=== PATIENT | male | born 1990 | race American Indian/Alaskan Native ===

== ENCOUNTER 2016-11-14 20:43 | Emergency (ER) | payer SELFPAY ==
--- NOTE | 2016-11-14 21:20 | Emergency Department Report ---
ED Male HPI - General Chief complaint: Urogenital-Male Stated complaint: TESTICLE PAIN Time Seen by Provider: 11/14/16 21:18 Source: patient Mode of arrival: Ambulatory Limitations: No Limitations - History of Present Illness Initial comments: Patient complains of testicular pain that started 2 days ago . taking otc pain meds without relieve. Pain 5/10 and sharp. Denies injury. He reports no discharge in triage but reported to me that he has yellow penile discharge that started 2 days ago after having unsafe sex. Denies urinary burning, frequency or urgency. denies abdominal or back pain. Denies fever or chills. Denies nausea or vomiting. Unsure if partner with symptoms of std. Patient also reports that his testicles has been hurting for years on/off. MD Complaint: testicle pain, testicle swelling, penile discharge Onset/Timin -: days(s) Location: left testicle Radiation: none Severity: moderate Severity scale (0 -10): 5 Quality: sharp Consistency: intermittent Worsens with: none new sexual partner discharge, swelling. denies: mass, rash, urinary retention, blood in urine, dysuria, fever, nausea/vomiting, incontinence - Related Data Sexually active: Yes Previous Rx's Medication Instructions Recorded Last Taken Type Acetaminophen/Codeine [Tylenol #3] 1 tab PO Q6H PRN #10 tab 12/15/14 Unknown Rx Azithromycin [Zithromax TAB] 2 gm PO ONCE #8 tablet 12/15/14 Unknown Rx Ibuprofen [Motrin 800 MG tab] 800 mg PO Q8HR PRN #30 tablet 12/15/14 Unknown Rx Mupirocin [Bactroban 2% OINT] 1 applic TP TID #1 tube 12/15/14 Unknown Rx Ciprofloxacin HCl [Ciprofloxacin 500 mg PO Q12HR #20 tab 11/14/16 Unknown Rx TAB] Allergies Allergy/AdvReac Type Severity Reaction Status Date / Time shellfish derived Allergy Anaphylaxis Verified 06/12/13 17:39 ED Review of Systems ROS: Stated complaint: TESTICLE PAIN Other details as noted in HPI Comment: All other systems reviewed and negative Constitutional: denies: chills, fever ENT: denies: throat pain Respiratory: no symptoms reported Cardiovascular: denies: chest pain, palpitations, edema, syncope Gastrointestinal: denies: abdominal pain, nausea, vomiting Genitourinary: discharge, testicular pain. denies: urgency, dysuria, frequency , hematuria, testicular mass Musculoskeletal: denies: back pain, arthralgia Skin: denies: rash Neurological: denies: headache, weakness, numbness, paresthesias, confusion, abnormal gait, vertigo ED Past Medical Hx - Past Medical History Previous Medical History?: Yes Additional medical history: hx of repeated treatment for gonorrhea - Surgical History Past Surgical History?: Yes Additional Surgical History: Bilateral orchiopexy. (1993 date) - Family History Family history: hypertension - Social History Smoking Status: Current Every Day Smoker Substance Use Type: Alcohol, Marijuana - Medications Home Medications: Home Medications Medication Instructions Recorded Confirmed Last Taken Type Acetaminophen/Codeine [Tylenol #3] 1 tab PO Q6H PRN #10 tab 12/15/14 Unknown Rx Azithromycin [Zithromax TAB] 2 gm PO ONCE #8 tablet 12/15/14 Unknown Rx Ibuprofen [Motrin 800 MG tab] 800 mg PO Q8HR PRN #30 tablet 12/15/14 Unknown Rx Mupirocin [Bactroban 2% OINT] 1 applic TP TID #1 tube 12/15/14 Unknown Rx Ciprofloxacin HCl [Ciprofloxacin 500 mg PO Q12HR #20 tab 11/14/16 Unknown Rx TAB] ED Physical Exam - General Limitations: No Limitations General appearance: alert, in no apparent distress - Head Head exam: Present: atraumatic, normocephalic, normal inspection - Eye Eye exam: Present: normal appearance, PERRL, EOMI. Absent: periorbital swelling Pupils: Present: normal accommodation - ENT ENT exam: Present: normal exam, normal orophraynx, mucous membranes moist, TM's normal bilaterally, normal external ear exam - Neck Neck exam: Present: normal inspection, full ROM. Absent: tenderness, meningismus, lymphadenopathy - Respiratory Respiratory exam: Present: normal lung sounds bilaterally. Absent: respiratory distress, chest wall tenderness - Cardiovascular Cardiovascular Exam: Present: regular rate, normal rhythm, normal heart sounds - GI/Abdominal GI/Abdominal exam: Present: soft, normal bowel sounds. Absent: distended, tenderness, guarding, rebound, rigid - exam: Present: normal inspection, testicular tenderness, urethral discharge. Absent: scrotal swelling External exam: Present: normal external exam. Absent: erythema, swelling, lesions, lacerations, ecchymosis, bleeding - Expanded Exam Expanded Male exam: Absent: phimosis, paraphimosis, penile swelling, lesions, induration, erythema, perineal induration, balanitis, priapism exam: Testicular Tenderness: Left - Extremities Exam Extremities exam: Present: normal inspection, full ROM, normal capillary refill. Absent: tenderness, pedal edema, joint swelling, calf tenderness - Back Exam Back exam: Present: normal inspection, full ROM. Absent: tenderness - Neurological Exam Neurological exam: Present: alert, oriented X3, normal gait, reflexes normal. Absent: motor sensory deficit - Psychiatric Psychiatric exam: Present: normal affect, normal mood - Skin Skin exam: Present: warm, dry, intact, normal color. Absent: rash ED Course Vital Signs 11/14/16 20:46 Temperature 98.1 F Pulse Rate 95 H Respiratory 18 Rate Blood Pressure 127/69 [Right] O2 Sat by Pulse 98 Oximetry - Reevaluation(s) Reevaluation #1: 11/14/16 22:01 Patient requesting testing for STD. Reevaluation #2: 11/14/16 22:39 Patient with Rocephin 1 g IM in the emergency room to cover urinary tract infection and gonorrhea. Azithromycin 1 g by mouth and Flagyl 2 g by mouth to cover chlamydia and Trichomonas. Patient had ultrasound of the testicles. ED Medical Decision Making - Lab Data Lab Results 11/14/16 Range/Units 21:12 Urine Color Yellow (Yellow) Urine Turbidity Cloudy (Clear) Urine pH 5.0 (5.0-7.0) Ur Specific [place] 1.026 (1.003-1.030) Urine Protein 30 mg/dl (Negative) mg/dL Urine Glucose (UA) Neg (Negative) mg/dL Urine Ketones Neg (Negative) mg/dL Urine Blood Sm (Negative) Urine Nitrite Neg (Negative) Urine Bilirubin Neg (Negative) Urine Urobilinogen < 2.0 (<2.0) mg/dL Ur Leukocyte Esterase Lg (Negative) Urine WBC (Auto) > 182.0 H (0.0-6.0) /HPF Urine RBC (Auto) 54.0 (0.0-6.0) /HPF Urine Mucus 2+ /HPF Urine culture pending GC/CLamydia pending - Radiology Data Radiology results: report reviewed Left testicular Microlithiasis. Testicles normal Arterial and venous blood flow.no epididymysis. - Medical Decision Making ED course: Significant complaint in left testicular pain going on for years but pain worsens 2 days ago. reports yellow penile discharge after sexual activity. Pain is 5/10 and burning.Patient with Rocephin 1 g IM in the emergency room to cover urinary tract infection and gonorrhea. Azithromycin 1 g by mouth and Flagyl 2 g by mouth to cover chlamydia and Trichomonas. Patient with microlithasis to left testicles other [place] normal testicles. Diagnosis and treatment plan explained to patient. I discussed with him that he will need to f/u with urologist in 3 days and [facility] STD and UTI. He voiced understanding of discharge diagnosis and treatment plans. No adverse reaction from medication given. Discharge home in stable condition with prescription for ciprofloxacin. Critical care attestation.: If time is entered above; I have spent that time in minutes in the direct care of this critically ill patient, excluding procedure time. ED Disposition Clinical Impression: Abnormal penile discharge, Concern about STD in male without diagnosis, Acute cystitis with hematuria, Testicular microlithiasis, Testicular pain, left Disposition: DC-01 TO HOME OR SELFCARE Is pt being admited?: No Does the pt Need Aspirin: No Condition: Stable Instructions: Urinary Tract Infection in Men (ED), Sexually Transmitted Diseases (ED), Safe Sex (ED), Testicle Pain (ED) Additional Instructions: Follow up at [facility] and urologist in 3 days Take Antibiotic as instructed See Discharge information on testicular microlithiasis Increase fluid intake Prescriptions: Ciprofloxacin HCl [Ciprofloxacin TAB] 500 mg PO Q12HR #20 tab Referrals: [facility] [Outside] - 11/17/16 SVETA BUSTOS MD [Staff Physician] - 11/17/16 Forms: Work/School Release Form(ED)
[2016-11-14 21:35] LABS: Bilirubin,Urine NEG (Negative); Blood,Urine SM (Negative); Ketones,Urine NEG (Negative); Leukocyte Esterase,Urine LG (Negative); Mucus,Urine 2+ /HPF; Nitrite,Urine NEG (Negative); Urobilinogen,Urine < 2.0 mg/dL (<2.0)
[2016-11-14 21:36] LABS: WBC,Urine > 182.0 /HPF (0.0-6.0)
[2016-11-14] MEDS ORDERED: ROCEPHIN IM STA (22:03)
[2016-11-14] MEDS ORDERED: XYLOCAINE 1% MPF 5 mL INFILTRATI ONE (22:03)
[2016-11-14] MEDS ORDERED: FLAGYL PO ONE (22:03)
[2016-11-14] MEDS ORDERED: ZITHROMAX PO ONE (22:03)
--- NOTE | 2016-11-14 22:25 | Ultrasound Report ---
FINAL REPORT PROCEDURE: US TESTICULAR DOPPLER COMP TECHNIQUE: Real-time willis-scale and color flow Doppler sonography in multiple planes of the scrotum, testicles, and epididymes was performed. Velocity spectral waveform analysis Doppler imaging of the arterial inflow and venous outflow of the testicles was performed with image documentation. CPT 20066 and 21794 HISTORY: testicular pain COMPARISON: No prior studies are available for comparison. FINDINGS: RIGHT TESTICLE: Size: 4.6 x 2.3 x 2.7 cm . Appearance: Multiple punctate echogenic foci are identified throughout the testis. Arterial blood flow: Normal spectral waveforms, flow velocities and color flow images.. Venous blood flow: Normal spectral waveforms and color flow images. Right epididymis: Normal size and echotexture . Hydrocele: None . LEFT TESTICLE Size: 4.2 x 2.2 x 2.6 cm . Appearance: Multiple punctate echogenic foci are identified throughout the testis. Arterial blood flow: Normal spectral waveforms, flow velocities and color flow images.. Venous blood flow: Normal spectral waveforms and color flow images. Leftepididymis: Normal size and echotexture . Hydrocele: None . IMPRESSION: Findings are consistent with testicular microlithiasis. No acute abnormality
[2016-11-14 23:07] VITALS: BP 126/82
== END 2016-11-14 23:09 | disposition home or self-care (01) ==
LOC: ED 20:43
DX: N30.00 Acute cystitis without hematuria (principal); F17.210 Nicotine dependence, cigarettes, uncomplicated; F12.10 Cannabis abuse, uncomplicated; Z91.013 Allergy to seafood
CPT/HCPCS: 81001; 87086; 87591; 93975; 96372; 99284; J0696

== ENCOUNTER 2017-03-26 10:06 | Emergency (ER) | payer SELFPAY ==
[2017-03-26 10:14] VITALS: BP 119/65
[2017-03-26] MEDS ORDERED: TORADOL IM ONE (10:32)
--- NOTE | 2017-03-26 10:39 | Emergency Department Report ---
ED Neck Pain/Injury HPI - General Chief Complaint: Neck Pain/Injury Stated Complaint: NECK AND SHOULDER PAIN, X5 DAYS AGO Time Seen by Provider: 03/26/17 10:31 Mode of arrival: Ambulatory Limitations: No Limitations - History of Present Illness Initial Comments: pt is a 26 y/o aam with nmh who presents for left sided neck muscle pain x 5 days as "some boxed fell on me at work and my neck is sore now" pain is described as 4/10 soreness that is exacerbated by movement pain is relieved by rest , there is no weakness no numbness no tingling pain radiates to left posterior lateral shoulder and scapula region described as spasm and tightness , theres no loc no other trauma head trauma or laceration or wound, there is no headache no dizziness no sob no cp no n/v. MD Complaint: neck pain Onset/Timin -: days(s) Place: work Radiation: left lateral, left upper extremity Severity: moderate Severity scale (0 -10): 4 Quality: aching, other ("soreness") Consistency: intermittent Improves With: other (rest , stretching ) Worsens With: movement of extremity, movement of neck Context: direct blow Associated Symptoms: denies: headache, fever, numbness, tingling, weakness, vertigo, difficulty walking, swollen glands, difficulty swallowing, nausea, vomiting Treatments Prior to Arrival: none - Related Data Previous Rx's Medication Instructions Recorded Last Taken Type Acetaminophen/Codeine [Tylenol #3] 1 tab PO Q6H PRN #10 tab 12/15/14 Unknown Rx Azithromycin [Zithromax TAB] 2 gm PO ONCE #8 tablet 12/15/14 Unknown Rx Ibuprofen [Motrin 800 MG tab] 800 mg PO Q8HR PRN #30 tablet 12/15/14 Unknown Rx Mupirocin [Bactroban 2% OINT] 1 applic TP TID #1 tube 12/15/14 Unknown Rx Ciprofloxacin HCl [Ciprofloxacin 500 mg PO Q12HR #20 tab 11/14/16 Unknown Rx TAB] Cyclobenzaprine [Flexeril] 10 mg PO TID PRN #30 tablet 03/26/17 Unknown Rx Naproxen 500 mg PO BID PRN #60 tablet 03/26/17 Unknown Rx Allergies Allergy/AdvReac Type Severity Reaction Status Date / Time shellfish derived Allergy Anaphylaxis Verified 06/12/13 17:39 ED Review of Systems ROS: Stated complaint: NECK AND SHOULDER PAIN, X5 DAYS AGO Other details as noted in HPI Constitutional: denies: chills, fever Eyes: denies: eye pain, eye discharge, vision change ENT: denies: ear pain, throat pain Respiratory: no symptoms reported Cardiovascular: denies: chest pain, palpitations Endocrine: no symptoms reported Gastrointestinal: denies: abdominal pain, nausea, diarrhea Genitourinary: denies: urgency, dysuria Musculoskeletal: other (neck and shoulder pain ) Skin: denies: rash, lesions Neurological: as per HPI Psychiatric: denies: anxiety, depression Hematological/Lymphatic: denies: easy bleeding, easy bruising ED Past Medical Hx - Past Medical History Previous Medical History?: Yes Additional medical history: hx of repeated treatment for gonorrhea - Surgical History Past Surgical History?: Yes Additional Surgical History: Bilateral orchiopexy. (1993 Approx. date) - Social History Smoking Status: Current Every Day Smoker Substance Use Type: Alcohol - Medications Home Medications: Home Medications Medication Instructions Recorded Confirmed Last Taken Type Acetaminophen/Codeine [Tylenol #3] 1 tab PO Q6H PRN #10 tab 12/15/14 Unknown Rx Azithromycin [Zithromax TAB] 2 gm PO ONCE #8 tablet 12/15/14 Unknown Rx Ibuprofen [Motrin 800 MG tab] 800 mg PO Q8HR PRN #30 tablet 12/15/14 Unknown Rx Mupirocin [Bactroban 2% OINT] 1 applic TP TID #1 tube 12/15/14 Unknown Rx Ciprofloxacin HCl [Ciprofloxacin 500 mg PO Q12HR #20 tab 11/14/16 Unknown Rx TAB] Cyclobenzaprine [Flexeril] 10 mg PO TID PRN #30 tablet 03/26/17 Unknown Rx Naproxen 500 mg PO BID PRN #60 tablet 03/26/17 Unknown Rx ED Physical Exam - General Limitations: No Limitations General appearance: alert, in no apparent distress - Head Head exam: Present: atraumatic, normocephalic, normal inspection - Eye Eye exam: Present: normal appearance, PERRL, EOMI Pupils: Present: normal accommodation - ENT ENT exam: Present: mucous membranes moist - Neck Neck exam: Present: normal inspection, tenderness (left lateal neck muscle pain ), full ROM, lymphadenopathy. Absent: thyromegaly - Expanded Neck Exam Expanded Neck exam: Present: tenderness (left lateral neck muscle pain there is no posterior vertebaral point tenderness no swelling no deformity noted spams ). Absent: midline deformity, anterior neck swelling, thyroid mass, carotid bruit, tracheal deviation - Respiratory Respiratory exam: Present: normal lung sounds bilaterally. Absent: respiratory distress, wheezes, stridor, chest wall tenderness - Cardiovascular Cardiovascular Exam: Present: regular rate, normal rhythm, normal heart sounds. Absent: systolic murmur, diastolic murmur, rubs, gallop - GI/Abdominal GI/Abdominal exam: Present: soft, normal bowel sounds. Absent: distended, tenderness, guarding, rebound, rigid, organomegaly, mass, bruit, pulsatile mass , hernia - Rectal Rectal exam: Present: deferred - Extremities Exam Extremities exam: Present: normal inspection, tenderness (left posterior lateral shoulder muscle pain ), normal capillary refill. Absent: full ROM, pedal edema, joint swelling, calf tenderness - Expanded Upper Extremity Exam Left Shoulder Exam: Present: full ROM, tenderness (left posterior lateral shoulder muscle pain and spasm ). Absent: swelling, abrasion, laceration, ecchymosis, deformity, crepidus, dislocation, erythema, tenderness over AC joint Upper Arm exam: Present: normal inspection, full ROM Elbow exam: Present: normal inspection, full ROM Forearm Wrist exam: Present: normal inspection, full ROM Hand Wrist exam: Present: normal inspection, full ROM Neuro motor exam: Present: wrist extension intact, thumb opposition intact, thumb IP flexion intact, thumb adduction intact, fingers 2-5 abduction intact Neurosensory exam: Present: 2-point discrimination, radial nerve intact, ulnar nerve intact, median nerve intact Vascular: Present: normal capillary refill, radial pulse, brachial pulse, ulnar pulse. Absent: vascular compromise, Pallo, pulse deficit radial art, pulse deficit ulnar art, pulse deficit brachial art - Back Exam Back exam: Present: normal inspection, full ROM. Absent: tenderness, CVA tenderness (R), CVA tenderness (L), muscle spasm, paraspinal tenderness, vertebral tenderness, rash noted - Neurological Exam Neurological exam: Present: alert, oriented X3, CN II-XII intact, normal gait, reflexes normal. Absent: motor sensory deficit - Psychiatric Psychiatric exam: Present: normal affect, normal mood - Skin Skin exam: Present: warm, dry, intact, normal color. Absent: rash ED Course Vital Signs 03/26/17 10:12 Temperature 97.8 F Pulse Rate 75 Respiratory 16 Rate Blood Pressure 119/65 O2 Sat by Pulse 97 Oximetry ED Medical Decision Making - Medical Decision Making pt is a 26 y/o aam with nmh who presents for left sided neck muscle pain x 5 days as "some boxed fell on me at work and my neck is sore now" pain is described as 4/10 soreness that is exacerbated by movement pain is relieved by rest , there is no weakness no numbness no tingling pain radiates to left posterior lateral shoulder and scapula region described as spasm and tightness , theres no loc no other trauma head trauma or laceration or wound, there is no headache no dizziness no sob no cp no n/v. , pt appears well nontoxic there is no posterior vertebral point tenderness no swelling no ecchymois no crepitus rom intact with reproducible spams to left lateral neck muscle pain, shoulder rom intact no ac joint tenderess mild reproducible pain to left suprascapula region, this musculoskeletal pain will treat with nsaids, muscle relaxant moist heat and neck exercises pt will follow up with primary care doctor in 2-3 days. pt verbalized agreement and understanding with discharge plan. Critical care attestation.: If time is entered above; I have spent that time in minutes in the direct care of this critically ill patient, excluding procedure time. ED Disposition Clinical Impression: Neck muscle strain Qualifiers: Encounter type: initial encounter Qualified Code(s): S16.1XXA - Strain of muscle, fascia and tendon at neck level, initial encounter Disposition: TO HOME OR SELFCARE Is pt being admited?: No Does the pt Need Aspirin: No Condition: Good Instructions: Cervical Spine Strain (ED), Neck Exercises (GEN) Prescriptions: Cyclobenzaprine [Flexeril] 10 mg PO TID PRN #30 tablet PRN Reason: Muscle Spasm Naproxen 500 mg PO BID PRN #60 tablet PRN Reason: Pain Referrals: PRIMARY CARE, [Primary Care Provider] - 3-5 Days Forms: Work/School Release Form(ED) Time of Disposition: 10:51
[2017-03-26] MEDS ORDERED: TORADOL ONE (10:48)
== END 2017-03-26 11:02 | disposition home or self-care (01) ==
LOC: ED 10:06
DX: S16.1XXA Strain of muscle, fascia and tendon at neck level, initial encounter (principal); F17.210 Nicotine dependence, cigarettes, uncomplicated; Z91.013 Allergy to seafood; W22.8XXA Striking against or struck by other objects, initial encounter; Y93.89 Activity, other specified; Y92.89 Other specified places as the place of occurrence of the external cause; Y99.8 Other external cause status
CPT/HCPCS: 96372; 99282; J1885

== ENCOUNTER 2017-04-03 18:32 | Emergency (ER) | payer SELFPAY ==
[2017-04-03] MEDS ORDERED: MOTRIN PO ONE (22:16)
--- NOTE | 2017-04-03 22:34 | Emergency Department Report ---
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 MD Complaint: neck pain Onset/Timin -: week(s) Place: work Radiation: left lateral Severity: mild Severity scale (0 -10): 4 Quality: aching Consistency: intermittent Improves With: other (rest) Worsens With: movement of neck Context: lifting Associated Symptoms: none Treatments Prior to Arrival: none - Related Data Previous Rx's Medication Instructions Recorded Last Taken Type Acetaminophen/Codeine [Tylenol #3] 1 tab PO Q6H PRN #10 tab 12/15/14 Unknown Rx Azithromycin [Zithromax TAB] 2 gm PO ONCE #8 tablet 12/15/14 Unknown Rx Ibuprofen [Motrin 800 MG tab] 800 mg PO Q8HR PRN #30 tablet 12/15/14 Unknown Rx Mupirocin [Bactroban 2% OINT] 1 applic TP TID #1 tube 12/15/14 Unknown Rx Ciprofloxacin HCl [Ciprofloxacin 500 mg PO Q12HR #20 tab 11/14/16 Unknown Rx TAB] Cyclobenzaprine [Flexeril] 10 mg PO TID PRN #30 tablet 03/26/17 Unknown Rx Naproxen 500 mg PO BID PRN #60 tablet 03/26/17 Unknown Rx Allergies Allergy/AdvReac Type Severity Reaction Status Date / Time shellfish derived Allergy Anaphylaxis Verified 06/12/13 17:39 ED Review of Systems ROS: Stated complaint: NECK PAIN Other details as noted in HPI Constitutional: denies: chills, fever Eyes: denies: eye pain, eye discharge, vision change ENT: denies: ear pain, throat pain Respiratory: denies: cough, shortness of breath, wheezing Cardiovascular: denies: chest pain, palpitations Endocrine: no symptoms reported Gastrointestinal: denies: abdominal pain, nausea, diarrhea Genitourinary: denies: urgency, dysuria Musculoskeletal: other (neck pain). denies: back pain, joint swelling, arthralgia Skin: denies: rash, lesions Neurological: denies: headache, weakness, paresthesias Psychiatric: denies: anxiety, depression Hematological/Lymphatic: denies: easy bleeding, easy bruising ED Past Medical Hx - Past Medical History Previous Medical History?: Yes Additional medical history: hx of repeated treatment for gonorrhea - Surgical History Additional Surgical History: Bilateral orchiopexy. (1993 Approx. date)-hernia - Social History Smoking Status: Current Every Day Smoker Substance Use Type: Alcohol - Medications Home Medications: Home Medications Medication Instructions Recorded Confirmed Last Taken Type Acetaminophen/Codeine [Tylenol #3] 1 tab PO Q6H PRN #10 tab 12/15/14 Unknown Rx Azithromycin [Zithromax TAB] 2 gm PO ONCE #8 tablet 12/15/14 Unknown Rx Ibuprofen [Motrin 800 MG tab] 800 mg PO Q8HR PRN #30 tablet 12/15/14 Unknown Rx Mupirocin [Bactroban 2% OINT] 1 applic TP TID #1 tube 12/15/14 Unknown Rx Ciprofloxacin HCl [Ciprofloxacin 500 mg PO Q12HR #20 tab 11/14/16 Unknown Rx TAB] Cyclobenzaprine [Flexeril] 10 mg PO TID PRN #30 tablet 03/26/17 Unknown Rx Naproxen 500 mg PO BID PRN #60 tablet 03/26/17 Unknown Rx ED Physical Exam - General Limitations: No Limitations General appearance: alert, in no apparent distress - Head Head exam: Present: atraumatic, normocephalic - Eye Eye exam: Present: normal appearance, PERRL, EOMI Pupils: Present: normal accommodation - ENT ENT exam: Present: mucous membranes moist - Neck Neck exam: Present: normal inspection, tenderness (left lateral neck muscle tenderness no vertebral point tenderness rom intact including chin to chest bilat shoulders and full extension ), full ROM. Absent: lymphadenopathy, thyromegaly - Expanded Neck Exam Expanded Neck exam: Absent: midline deformity, anterior neck swelling, thyroid mass, carotid bruit, tracheal deviation - Respiratory Respiratory exam: Present: normal lung sounds bilaterally. Absent: respiratory distress, wheezes, stridor, chest wall tenderness - Cardiovascular Cardiovascular Exam: Present: regular rate, normal rhythm. Absent: systolic murmur, diastolic murmur, rubs, gallop - GI/Abdominal GI/Abdominal exam: Present: soft, normal bowel sounds - Rectal Rectal exam: Present: deferred - Extremities Exam Extremities exam: Present: normal inspection, full ROM, normal capillary refill. Absent: tenderness, pedal edema, joint swelling - Back Exam Back exam: Present: normal inspection - Neurological Exam Neurological exam: Present: alert, oriented X3 - Psychiatric Psychiatric exam: Present: normal affect, normal mood - Skin Skin exam: Present: warm, dry, intact, normal color. 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 normal neck exam rom intact no posterior vertebral point tenderness no paresthesia no numbness no tingling no weakness no dizziness no headache no n/v no visual changes, pain improved with ibuprofen po , pt has rx in his possession for naproxen and flexeril pt states he has resources to secure medications, pt advised to pickers material handlers medications and take as prescribed, pt will follow up with primary care Dr. Vallejo [phone]. pt verbalized agreement and understanding of discharge plan. Critical care attestation.: If time is entered above; I have spent that time in minutes in the direct care of this critically ill patient, excluding procedure time. ED Disposition Clinical Impression: Neck muscle strain Qualifiers: Encounter type: subsequent encounter Qualified Code(s): S16.1XXD - Strain of muscle, fascia and tendon at neck level, subsequent encounter Disposition: TO HOME OR SELFCARE Is pt being admited?: No Does the pt Need Aspirin: No Condition: Good Instructions: Cervical Spine Strain (ED), Neck Exercises (GEN) Referrals: PRIMARY CARE, [Primary Care Provider] - 3-5 Days MARIO ROMO MD [Staff Physician] - 3-5 Days Forms: Work/School Release Form(ED) Time of Disposition: 22:43
[2017-04-04 03:49] VITALS: BP 125/79
== END 2017-04-03 22:49 | disposition home or self-care (01) ==
LOC: ED 18:32
DX: S16.1XXD Strain of muscle, fascia and tendon at neck level, subsequent encounter (principal); X50.0XXA Overexertion from strenuous movement or load, initial encounter; Y93.89 Activity, other specified; Y92.89 Other specified places as the place of occurrence of the external cause; Y99.8 Other external cause status
CPT/HCPCS: 99282

== ENCOUNTER 2017-12-30 22:34 | Emergency (ER) | payer SELFPAY ==
[2017-12-31] MEDS ORDERED: BENADRYL IM ONE (01:25)
[2017-12-31] MEDS ORDERED: DECADRON IM ONE (01:25)
--- NOTE | 2017-12-31 02:47 | Emergency Department Report ---
HPI - General Chief Complaint: Allergic Reaction Time Seen by Provider: 12/31/17 02:32 - HPI HPI: 27-year-old -[place] male reports to the emergency room for 2 days of allergic reaction that started with his skin burning and then started to develop whelps all over the body. Patient doesn't know what he got exposed to what could have caused it. Patient does report he has recently moved in with his sister. He denies any difficulty breathing and denies any difficulty swallowing no chest pain no shortness of breathing. Patient reports that he tried the Benadryl but did not help. Patient reports an allergic reaction only cheese shellfish. Patient currently takes no medication at this time ED Past Medical Hx - Past Medical History Previous Medical History?: Yes Additional medical history: hx of repeated treatment for gonorrhea - Surgical History Past Surgical History?: Yes Additional Surgical History: Bilateral orchiopexy. (1993 Approx. date)-hernia - Social History Smoking Status: Never Smoker - Medications Home Medications: Home Medications Medication Instructions Recorded Confirmed Last Taken Type Acetaminophen/Codeine [Tylenol #3] 1 tab PO Q6H PRN #10 tab 12/15/14 Unknown Rx Azithromycin [Zithromax TAB] 2 gm PO ONCE #8 tablet 12/15/14 Unknown Rx Ibuprofen [Motrin 800 MG tab] 800 mg PO Q8HR PRN #30 tablet 12/15/14 Unknown Rx Mupirocin [Bactroban 2% OINT] 1 applic TP TID #1 tube 12/15/14 Unknown Rx Ciprofloxacin HCl [Ciprofloxacin 500 mg PO Q12HR #20 tab 11/14/16 Unknown Rx TAB] Cyclobenzaprine [Flexeril] 10 mg PO TID PRN #30 tablet 03/26/17 Unknown Rx Naproxen 500 mg PO BID PRN #60 tablet 03/26/17 Unknown Rx Loratadine [Claritin] 10 mg PO DAILY #20 tablet 12/31/17 Unknown Rx Prednisone [predniSONE 5 mg (6-Day 5 mg PO .TAPER #1 tab.ds.pk 12/31/17 Unknown Rx Pack, 21 Tabs)] ED Review of Systems ROS: Stated complaint: SKIN RASH Other details as noted in HPI Comment: All other systems reviewed and negative Constitutional: denies: chills, fever Skin: rash, pruritus Physical Exam - Physical Exam Vital Signs: Vital Signs 12/30/17 23:26 Temperature 98.2 F Pulse Rate 67 Respiratory 18 Rate Blood Pressure 108/65 O2 Sat by Pulse 99 Oximetry Physical Exam: GENERAL: Alert and oriented x3, no apparent distress, Normal Gait, atraumatic. HEAD: Head is normocephalic and a-traumatic. EYES: Extra ocular muscles are intact. Pupils are equal, round, and reactive to light and accommodation. EARS: symetrical, atraumatic, non tender, ear canal clear and moderate cerumen, tympanic membrance non inflamed. gross auditory nml bilaterally. NOSE: Nose symetrical, Nontender,Nares appeared normal. MOUTH:Mouth is well hydrated and without lesions. Tonsils nonerythematous or swollen, Uvula midline, Tongue not elevated. Mucous membranes are moist. Posterior pharynx clear, no exudate or lesions. Patent airways. NECK: Supple. Non edematous, No carotid bruits. No lymphadenopathy or thyromegaly. LUNGS: Symetrical with respiration, No wheezing, no rales or crackles, CTAB. NEUROLOGIC: No focal Deficit, Cranial nerves II through XII are grossly intact. . PSYCHIATRIC: Mood is congruent with affect, SKIN: Warm and dry, multiple urticaria on back trunk and bilateral thighs. ED Course Vital Signs 12/30/17 23:26 Temperature 98.2 F Pulse Rate 67 Respiratory 18 Rate Blood Pressure 108/65 O2 Sat by Pulse 99 Oximetry ED Medical Decision Making - Medical Decision Making Patient has been evaluated by this provider in fast track. Patient is given IM Decadron, Benadryl and by mouth Prevacid. Discussed the patient that I would discharge him on Claritin 10 mg daily and Medrol Dosepak. Discussed the patient is symptoms persists or does not improve that he should follow up with a primary care provider for possibility of allergy testing. Patient verbalizes understanding. Critical care attestation.: If time is entered above; I have spent that time in minutes in the direct care of this critically ill patient, excluding procedure time. ED Disposition Clinical Impression: Urticaria Allergic reaction Qualifiers: Encounter type: initial encounter Qualified Code(s): T78.40XA - Allergy, unspecified, initial encounter Disposition: - TO HOME OR SELFCARE Is pt being admited?: No Does the pt Need Aspirin: No Condition: Stable Instructions: Urticaria (ED) Additional Instructions: Take medication as prescribed. If her symptoms persist or gets worse please follow up with a primary care provider. Prescriptions: Loratadine [Claritin] 10 mg PO DAILY #20 tablet Prednisone [predniSONE 5 mg (6-Day Pack, 21 Tabs)] 5 mg PO .TAPER #1 tab.ds.pk Referrals: PRIMARY CARE, [Primary Care Provider] - 3-5 Days [facility] [Provider Group] - 3-5 Days Forms: Work/School Release Form(ED)
[2017-12-31] MEDS ORDERED: PEPCID ONE (02:51)
[2017-12-31] MEDS ORDERED: PEPCID PO ONE (02:53)
[2017-12-31 03:10] VITALS: BP 115/66
== END 2017-12-31 02:59 | disposition home or self-care (01) ==
LOC: ED 22:34
DX: T78.40XA Allergy, unspecified, initial encounter (principal); L50.9 Urticaria, unspecified; Z91.013 Allergy to seafood; X58.XXXA Exposure to other specified factors, initial encounter
CPT/HCPCS: 96372; 99282; J1100; J1200

== ENCOUNTER 2018-06-16 00:31 | Emergency (ER) | payer SELFPAY ==
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
[2018-06-16] MEDS ORDERED: IBUPROFEN PO ONE (03:10)
[2018-06-16 14:58] VITALS: BP 132/64
== END 2018-06-16 03:43 | disposition home or self-care (01) ==
LOC: ED 00:31
DX: S99.911A Unspecified injury of right ankle, initial encounter (principal); S99.921A Unspecified injury of right foot, initial encounter; S93.401A Sprain of unspecified ligament of right ankle, initial encounter; S93.601A Unspecified sprain of right foot, initial encounter; Z79.899 Other long term (current) drug therapy; Z91.013 Allergy to seafood; W20.8XXA Other cause of strike by thrown, projected or falling object, initial encounter; Y93.89 Activity, other specified; Y99.0 Civilian activity done for income or pay; Y92.69 Other specified industrial and construction area as the place of occurrence of the external cause

== ENCOUNTER 2020-01-13 08:39 | Emergency (ER) | payer SELFPAY ==
--- NOTE | 2020-01-13 10:08 | Emergency Department Report ---
Chief Complaint: Urogenital-Male Stated Complaint: STD CHECK Time Seen by Provider: 01/13/20 10:03 - HPI History of Present Illness: 29-year-old -[place] male presents to the emergency room stating he would like to have an STD check. Patient reports he has had discomfort for the last 2 days. He denies any fever chills no nausea no vomiting or abdominal pain. Patient reports he has had unprotected intercourse states that the condom broke. Patient reports a history of STD in the past. - Exam Physical Exam: Gen: alert oriented NAD Cardic: regular rate and rhythm no murmurs appreciated Resp: Clear to auscultation bilateral no wheezing no rales or rhonchi. Abdomen: Soft nontender nondistended normal bowel sounds. MSE screening note: Focused history and physical exam performed. Due to findings the following was ordered: 29-year-old -[place] male presents to the emergency room stating he would like to have an STD check. Patient reports he has had discomfort for the last 2 days. He denies any fever chills no nausea no vomiting or abdominal pain. Patient reports he has had unprotected intercourse states that the condom broke. Patient reports a history of STD in the past. Discussed with patient I will send him to community providers for STD evaluation and treatment. ED Disposition for MSE Disposition: Z-07 MED SCREENING EXAM-LEFT Is pt being admited?: No Does the pt Need Aspirin: No Condition: Stable Instructions: Sexually Transmitted Diseases (ED) Additional Instructions: Follow-up with STD clinic Referrals: [facility] [Outside] - 3-5 Days [facility] [Outside] - 3-5 Days [facility] [Outside] - 3-5 Days
== END 2020-01-13 10:16 | disposition left against medical advice (07) ==
LOC: ED 08:39
DX: Z53.21 Procedure and treatment not carried out due to patient leaving prior to being seen by health care provider (principal)